=== PATIENT | male | born 1985 | race Caucasian/White ===

== ENCOUNTER 2024-01-28 17:56 | Emergency (ER) | payer SELFPAY ==
[2024-01-28 18:05] VITALS: BP 155/88; PULSE 87; TEMP 36.3; O2SAT 98; BMI 26.0
--- NOTE | 2024-01-28 18:17 | ED_ITS ---
HPI HPI - General Adult General Chief complaint: Extremity Problem, Nontraumatic Stated complaint: HEAT SYMPTOMS Time Seen by Provider: 01/28/24 18:03 Source: patient Mode of arrival: walk-in Limitations: no limitations History of Present Illness HPI narrative: 38-year-old male to the emergency department chief complaint of cramping. Patient reports he was out working in the heat all day. He reports that he was drinking body armor throughout the day but believes he got dehydrated. He reports that he has had heat cramps before. Came to the emergency department for fluids. Denies any other symptoms. Related Data Allergies Allergy/AdvReac Type Severity Reaction Status Date / Time tramadol Allergy Severe Swelling Verified 01/28/24 18:05 of Lip/Tongue/Throat Opioid HPI Opioid Management Most Recent Opioid Data: No Data to Display Review of Systems ROS Status of ROS 10 or more systems reviewed and unremark able except as noted in history and below Exam Narrative Exam Narrative: VITALS: I have reviewed the triage vital signs. GENERAL: Well developed, well appearing adult in no acute distress. NEURO: Alert and oriented. Moves all extremities. Face is symmetric and expressive. EYES: PERRL. No scleral icterus or conjunctival injection. No discharge. HENT: Normocephalic, atraumatic. Hearing is grossly intact. Nares grossly patent and without discharge. Mucous membranes moist. NECK: No JVD. Patient moves neck without restriction. CARDIO: Rhythm regular. Normal rate. No murmur, rub, or gallop. Pulses equal bilaterally in the upper and lower extremity. No lower extremity edema. PULM: Lungs clear to auscultation in all child. No wheezes, rales, or rhonchi. No conversational dyspnea. No splinting, stridor, or accessory muscle use. GI/: Abdomen is soft and non-tender. Normoactive bowel sounds. EXTREMITIES: Symmetric muscle bulk. No joint swelling. No clubbing, cyanosis, or deformity. SKIN: Warm and dry. Normal turgor. No rash or lesions appreciated. PSYCH: Mood, affect, and interaction is appropriate to the setting. Constitutional Vital Signs, click to edit/add: Last Vital Signs Temp 97.4 F L 01/28/24 18:05 Pulse 87 01/28/24 18:05 Resp 18 01/28/24 18:05 BP 155/88 H 01/28/24 18:05 Pulse Ox 98 01/28/24 18:05 O2 Del Method Room Air 01/28/24 18:05 Course Vital Signs Vital signs: Vital Signs Temperature 97.4 F L 01/28/24 18:05 Pulse Rate 87 01/28/24 18:05 Respiratory Rate 18 01/28/24 18:05 Blood Pressure 155/88 H 01/28/24 18:05 Pulse Oximetry 98 01/28/24 18:05 Oxygen Delivery Method Room Air 01/28/24 18:05 Temperature 97.4 F L 01/28/24 18:05 Pulse Rate 87 01/28/24 18:05 Respiratory Rate 18 01/28/24 18:05 Blood Pressure 155/88 H 01/28/24 18:05 Pulse Oximetry 98 01/28/24 18:05 Oxygen Delivery Method Room Air 01/28/24 18:05 Medical Decision Making MDM Narrative Medical decision making narrative: Well-appearing 38-year-old male to the emergency department chief complaint of cramping in the muscles of his arms and legs after working all day. He reports the cramping is intermittent. It is not severe. He reports this has happened in the past when he gets dehydrated. A BMP, urinalysis and fluids are ordered for the patient. Care was signed out to Dr. Rocha with disposition pending. I do anticipate he will be able to be discharged home. Discharge Plan Discharge Patient Disposition: Still a Patient
[2024-01-28] MEDS: LACTATED RINGER'S SOLUTION 1,000 ML 999 ML IV (18:26)
[2024-01-28 19:08] LABS: Anion Gap 13.8; BUN Creatinine Ratio 13.8; Calcium 9.5 mg/dL (8.5-10.1); Carbon Dioxide 27.3 mmol/L (21.0-32.0); Chloride 99 mmol/L (98-107); Estimated GFR (African America >60 (>=60); Estimated GFR (Non-African Ame >60 (>=60); Glucose 97 mg/dL (74-106); Potassium 4.1 mmol/L (3.5-5.1); Sodium 136 mmol/L (136-145)
[2024-01-28 19:30] LABS: Bilirubin Urine NEGATIVE (NEGATIVE); Blood Urine NEGATIVE (NEGATIVE); Clarity Urine CLEAR (CLEAR); Color Urine LT. YELLOW (YELLOW); Glucose Urine UA NEGATIVE (NEGATIVE); Ketones Urine NEGATIVE (NEGATIVE); Leukocyte Esterase Urine NEGATIVE (NEGATIVE); Nitrite Urine NEGATIVE (NEGATIVE); Protein Urine NEGATIVE (NEG/TRACE); Urobilinogen Urine 0.2 EU/dL (0.2-1.0)
[2024-01-28 19:45] LABS: Bacteria Urine NONE SEEN #/HPF (NONE SEEN); Crystals Seen? None Seen #/HPF (None Seen); Mucus Urine SMALL (NONE SEEN); RBC Urine NONE SEEN #/HPF (0-2); Squamous Epithelial Cell Urine NONE SEEN #/LPF (NONE/RARE); WBC Urine 0-2 #/HPF (NONE SEEN)
[2024-01-28 19:46] LABS: Cast Seen? SEEN #/LPF (NONE SEEN); Hyaline Casts Urine FEW; Urine Culture Indicated NO
--- NOTE | 2024-01-28 20:13 | ED_ITS ---
HPI HPI - General Adult General Chief complaint: Extremity Problem, Nontraumatic Stated complaint: HEAT SYMPTOMS Time Seen by Provider: 01/28/24 18:03 Source: patient Mode of arrival: walk-in Limitations: no limitations History of Present Illness HPI narrative: This 38-year-old male was signed out to me at shift change. He presents for evaluation of cramps that he states he gets when he is exposed to the heat. It was almost 90 degrees outside today and he was working outside. He states he was drinking body armor drinks all day but still started experiencing leg cramps. At the time of signout he was receiving IV fluids and a BMP and urinalysis was pending. His BMP is normal. Urinalysis is negative for infection or ketones. Patient was seen and evaluated. He states he is anxious to go but still having cramps in his legs. He has a normal BUN and creatinine will be given a dose of Toradol prior to discharge. I offered him something to drink but he states he has drinks in the car and wishes to leave. Related Data Allergies Allergy/AdvReac Type Severity Reaction Status Date / Time tramadol Allergy Severe Swelling Verified 01/28/24 18:05 of Lip/Tongue/Throat Opioid HPI Opioid Management Most Recent Opioid Data: No Data to Display Exam Constitutional Vital Signs, click to edit/add: Last Vital Signs Temp 97.4 F L 01/28/24 18:05 Pulse 87 01/28/24 18:05 Resp 18 01/28/24 18:05 BP 155/88 H 01/28/24 18:05 Pulse Ox 98 01/28/24 18:05 O2 Del Method Room Air 01/28/24 18:05 Course Vital Signs Vital signs: Vital Signs Temperature 97.4 F L 01/28/24 18:05 Pulse Rate 87 01/28/24 18:05 Respiratory Rate 18 01/28/24 18:05 Blood Pressure 155/88 H 01/28/24 18:05 Pulse Oximetry 98 01/28/24 18:05 Oxygen Delivery Method Room Air 01/28/24 18:05 Temperature 97.4 F L 01/28/24 18:05 Pulse Rate 87 01/28/24 18:05 Respiratory Rate 18 01/28/24 18:05 Blood Pressure 155/88 H 01/28/24 18:05 Pulse Oximetry 98 01/28/24 18:05 Oxygen Delivery Method Room Air 01/28/24 18:05 Medical Decision Making Lab Data Lab results reviewed: Yes I reviewed the patient's lab results Labs: Lab Results 01/28/24 01/28/24 Range/Units 18:20 19:18 Sodium 136 (136-145) mmol/L Potassium 4.1 (3.5-5.1) mmol/L Chloride 99 (98-107) mmol/L Carbon Dioxide 27.3 (21.0-32.0) mmol/L Anion Gap 13.8 BUN 18.0 (7.0-18.0) mg/dL Creatinine 1.30 (0.70-1.30) mg/dL Est GFR ( Amer) >60 (>=60) Est GFR (Non-Af Amer) >60 (>=60) BUN/Creatinine Ratio 13.8 Glucose 97 (74-106) mg/dL Calcium 9.5 (8.5-10.1) mg/dL Urine Color Lt. yellow (YELLOW) Urine Clarity Clear (CLEAR) Urine pH 6.0 (5.0-9.0) Ur Specific [place] 1.020 (1.005-1.025) Urine Protein Negative (NEG/TRACE) mg/dL Urine Glucose (UA) Negative (NEGATIVE) mg/dL Urine Ketones Negative (NEGATIVE) mg/dL Urine Occult Blood Negative (NEGATIVE) Urine Nitrite Negative (NEGATIVE) Urine Bilirubin Negative (NEGATIVE) Urine Urobilinogen 0.2 (0.2-1.0) EU/dL Ur Leukocyte Esterase Negative (NEGATIVE) Urine RBC None seen (0-2) #/HPF Urine WBC 0-2 A (NONE SEEN) #/HPF Ur Squamous Epith Cells None seen (NONE/RARE) #/LPF Urine Crystals None seen (None Seen) #/HPF Urine Bacteria None seen (NONE SEEN) #/HPF Urine Casts Seen A (NONE SEEN) #/LPF Hyaline Casts Few Urine Mucus Small A (NONE SEEN) Ur Culture Indicated? No Discharge Plan Discharge Stand Alone Forms: Portal Instructions Chief Complaint: Extremity Problem, Nontraumatic Clinical Impression: Dehydration, Cramp in muscle, Heat cramp, initial encounter Patient Disposition: Home, Self-Care Time of Disposition Decision: 20:11 Condition: Good Print Language: Urdu Instructions: Liquids and Hydration for Athletes (ED), Muscle Cramp (ED)
[2024-01-28] MEDS: KETOROLAC TROMETHAMINE 30 MG/ML VIAL IVP (20:25)
[2024-01-28 20:29] VITALS: BP 140/80; PULSE 80; O2SAT 100
== END 2024-01-28 20:28 | disposition home or self-care (01) ==
PROVIDERS: Student in an Organized Health Care Education/Training Program; Emergency Provider Emergency Medicine
DX: T67.2XXA Heat cramp, initial encounter (principal); X30.XXXA Exposure to excessive natural heat, initial encounter; E86.0 Dehydration
CPT/HCPCS: 36415; 80048; 81001; 82550; 83735; 96361; 96374; 99284; J1885